=== PATIENT | male | born 2000 | race African-American/Black ===

== ENCOUNTER 2023-08-23 19:37 | Emergency (ER) | payer OTHER, SELFPAY | END 2023-08-23 20:06 | disposition home or self-care (01) | LOC: CSHERS 19:37 | DX: J06.9 Acute upper respiratory infection, unspecified (principal); F17.210 Nicotine dependence, cigarettes, uncomplicated | CPT/HCPCS: 99283 ==

== ENCOUNTER 2024-03-31 11:50 | Emergency (ER) | payer SELFPAY ==
[2024-03-31] MEDS ORDERED: cefTRIAXone (ROCEPHIN) 500 MG VIAL ONE (12:41)
[2024-03-31] MEDS ORDERED: Lidocaine 1% PF 5 ML VIAL ONE (12:44)
[2024-04-01 01:03] LABS: Chlam.trachomatis by PCR,Urine DETECTED (NotDetected); GC N.gonorrhoeae PCR,UrineVOID Not Detected (NotDetected)
== END 2024-03-31 13:00 | disposition home or self-care (01) ==
LOC: CSHERS 11:50
DX: R36.9 Urethral discharge, unspecified (principal); F17.210 Nicotine dependence, cigarettes, uncomplicated
CPT/HCPCS: 87491; 87591; 96372; 99283; J0696